=== PATIENT | female | born 1975 | race Caucasian/White ===

== ENCOUNTER 2016-11-15 07:34 | Day surgery (SDC) | payer OTHER ==
[~2016-11-15] VITALS: Ht 165.1 cm; Wt 95.7 kg
[~2016-11-15 07:34] MED LIST: ALBU17IN INH; no medications
[2016-11-15] MEDS ORDERED: GENTAMICIN SULFATE 360 MG in D5W 100 ML IV ONE (08:00)
[2016-11-15] MEDS ORDERED: CLINDAMYCIN 900 MG in APPROPRIATE DILUENT 1 EA IV ONE (08:00)
[2016-11-15] MEDS ORDERED: LR 1,000 ML IV SCH ×2 (08:00→13:45)
[2016-11-15] MEDS ORDERED: METHYLENE BLUE 1% 10 ML VIAL (Q9968) As Ordered ONE (08:11)
[2016-11-15] MEDS ORDERED: BUPIVACAINE HCL 0.25% 30 ML VIAL As Ordered ONE (08:11)
[2016-11-15 08:16] LABS: MEAN CORPUSCULAR HEMOGLOBIN 28.2 pg (27.0-33.0); MEAN CORPUSCULAR HGB CONC 34.2 g/dl (32.0-36.5); MEAN CORPUSCULAR VOLUME 82.6 fl (80.0-96.0); RED CELL DISTRIBUTION WIDTH 13.7 % (11.5-14.5); WHITE BLOOD COUNT 4.9 K/mm3 (4.0-10.0)
[2016-11-15 08:30] LABS: ANION GAP 9 MEQ/L (8-16); BLOOD UREA NITROGEN 13 MG/DL (7-18); CALCIUM LEVEL 8.9 MG/DL (8.5-10.1); CARBON DIOXIDE LEVEL 25 MEQ/L (21-32); CHLORIDE LEVEL 108 MEQ/L (98-107); CREATININE FOR GFR 0.86 MG/DL (0.55-1.02); GLOMERULAR FILTRATION RATE > 60.0 (>58); GLUCOSE, FASTING 99 MG/DL (70-105); POTASSIUM SERUM 3.8 MEQ/L (3.5-5.1); SODIUM LEVEL 142 MEQ/L (136-145)
[2016-11-15 08:32] LABS: CONTROL LINE HCG INT CTR LINE PRESENT
[2016-11-15] MEDS ORDERED: LIDOCAINE 2% INJ 100 MG/5 ML SDV (FOR ANES.) As Ordered ONE (09:29)
[2016-11-15] MEDS ORDERED: ROCURONIUM BROMIDE 50 MG/5 ML VIAL As Ordered ONE ×2 (09:29→10:13)
[2016-11-15] MEDS ORDERED: MIDAZOLAM INJ 2 MG/2 ML VIAL (J2250) As Ordered ONE (09:29)
[2016-11-15] MEDS ORDERED: PROPOFOL 200 MG/20 ML VIAL As Ordered ONE (09:29)
[2016-11-15] MEDS ORDERED: dexameTHASONE 4 MG/ML 1ML VIAL (J1100) As Ordered ONE (09:29)
[2016-11-15] MEDS ORDERED: fentaNYL 250 MCG/5 ML INJECTION (J3010) As Ordered ONE (09:29)
[2016-11-15] MEDS ORDERED: SEVOFLURANE INHAL SOLN 250 ML BTL As Ordered ONE (11:04)
[2016-11-15] MEDS ORDERED: HYDROmorphone HCL 2 MG/ML 1ML VIAL (J1170) As Ordered ONE (11:21)
[2016-11-15] MEDS ORDERED: ONDANSETRON 4MG/2ML VIAL (J2405) As Ordered ONE (11:21)
[2016-11-15] MEDS ORDERED: METOCLOPRAMIDE INJ 10MG/2ML VIAL (J2765) As Ordered ONE (11:21)
[2016-11-15] MEDS ORDERED: NEOSTIGMINE 1MG/ML 5 ML SYRINGE (J2710) As Ordered ONE (11:21)
[2016-11-15] MEDS ORDERED: GLYCOPYRROLATE INJ 0.2 MG/ML 2 ML VIAL As Ordered ONE (11:21)
[2016-11-15] MEDS ORDERED: ePHEDrine SULFATE 25 MG/5 ML(5MG/ML) SYRINGE As Ordered ONE (11:29)
[2016-11-15] MEDS: KETOROLAC 30 MG/ML VIAL (J1885) IV SCH ×2 (12:45→20:05)
[2016-11-15] MEDS ORDERED: METHYLENE BLUE 1% 10 ML VIAL (Q9968) XX ONE (13:01)
[2016-11-15] MEDS ORDERED: BUPIVACAINE HCL 0.25% 30 ML VIAL XX ONE (13:01)
[2016-11-15] MEDS: LR 1,000 ML IV SCH ×2 (13:15→20:05)
[2016-11-15] MEDS ORDERED: PERCOCET 5MG/325MG TAB PO PRN ×2 (13:15→13:45)
[2016-11-15] MEDS ORDERED: ONDANSETRON 4MG/2ML VIAL (J2405) IV PRN (13:15)
[2016-11-15] MEDS ORDERED: PROMETHAZINE INJ 25 MG/ML VIAL (J2550) IV PRN (13:15)
[2016-11-15] MEDS ORDERED: fentaNYL 100 MCG/2 ML INJECTION (J3010) IV PRN (13:45)
[2016-11-15 15:20] VITALS: BP 140/75
[2016-11-15 15:50] VITALS: BP 126/70
[2016-11-15] MEDS ORDERED: IBUP600T26 PO (16:42)
[2016-11-15] MEDS ORDERED: OXYC1TAB23 PO (16:44)
[2016-11-15] MEDS ORDERED: ZOFR20TA PO (16:47)
[2016-11-15] MEDS ORDERED: COLA100C PO (16:48)
[2016-11-15 16:50] VITALS: BP 126/68
[2016-11-15 17:50] VITALS: BP 123/58
[2016-11-15] MEDS: PERCOCET 5MG/325MG TAB PO PRN (18:06)
[2016-11-15 18:50] VITALS: BP 118/65
[2016-11-15 19:50] VITALS: BP 109/56
[2016-11-15] MEDS: DOCUSATE SODIUM 100 MG CAP PO SCH (20:05)
[2016-11-16] VITALS: BP 115/59
[2016-11-16] MEDS: PERCOCET 5MG/325MG TAB PO PRN ×2 (00:36→06:58)
[2016-11-16] MEDS: KETOROLAC 30 MG/ML VIAL (J1885) IV SCH ×2 (02:22→08:10)
[2016-11-16] MEDS: LR 1,000 ML IV SCH (02:31)
[2016-11-16 04:00] VITALS: BP 122/60
[2016-11-16 06:54] LABS: BASO % 0.1 % (0.0-1.0); EOS % 0.2 % (0.0-3.0); LARGE UNSTAINED CELL # 0.1 K/mm3 (0.0-0.4); LARGE UNSTAINED CELL % 1.4 % (0.0-4.0); LYMPH # 1.6 K/mm3 (1.5-4.5); LYMPH % 22.1 % (24.0-44.0); MEAN CORPUSCULAR HEMOGLOBIN 28.6 pg (27.0-33.0); MEAN CORPUSCULAR HGB CONC 34.3 g/dl (32.0-36.5); MEAN CORPUSCULAR VOLUME 83.5 fl (80.0-96.0); MONO # 0.3 K/mm3 (0.0-0.8); MONO % 4.8 % (0.0-5.0); NEUTROPHILS % 71.3 % (36.0-66.0); PLATELET COUNT, AUTOMATED 204 k/mm3 (150-450); RED CELL DISTRIBUTION WIDTH 13.2 % (11.5-14.5); WHITE BLOOD COUNT 7.1 K/mm3 (4.0-10.0)
[2016-11-16 08:00] VITALS: BP 146/65
[2016-11-16] MEDS: DOCUSATE SODIUM 100 MG CAP PO SCH (08:10)
[2016-11-16] MEDS ORDERED: MOTR200T40 PO (09:43)
[2016-11-16] MEDS ORDERED: IBUPROFEN 800 MG TAB PO SCH (16:00)
--- NOTE | 2016-11-18 13:28 | RO ---
DATE OF PROCEDURE: 11/15/2016 PREOPERATIVE DIAGNOSES: 1. Abnormal uterine bleeding. 2. Chronic pelvic pain. 3. Recurrent, persistent bilateral ovarian cysts. POSTOPERATIVE DIAGNOSES: 1. Abnormal uterine bleeding. 2. Chronic pelvic pain. 3. Recurrent, persistent bilateral ovarian cysts. PROCEDURE PERFORMED: Robotic-assisted total laparoscopic hysterectomy, bilateral salpingo-oophorectomy and cystoscopy. SURGEON: Oneil Ruiz DO. [employer]IM [employer]T SEWING MACHINE OPERATOR: NILESH Ramey (needed for uterine manipulation). ANESTHESIA: General endotracheal. SPECIMENS TO PATHOLOGY: Uterus, cervix with bilateral fallopian tube and ovaries. ESTIMATED BLOOD LOSS: 50 mL. FLUIDS REPLACED: 2 liters lactated Ringer's. DRAINS: Puente catheter 400 mL. COMPLICATIONS: None. PREOPERATIVE ANTIBIOTICS: Gentamicin 360 mg IV x1, clindamycin 900 mg IV x1. INTRAOPERATIVE FINDINGS: Uterus was approximately 7-8 cm in greatest dimension. The uterus sounded to 7.5 cm. Left ovary was enlarged approximately 5 cm in greatest dimension with smooth wall cyst but no studding or excrescences noted. No surrounding adhesions. Right ovary enlarged approximately 7 cm in greatest dimension, smooth wall cyst with no studding, excrescences or adhesions. Cystoscopic findings: No bladder injury. No suture material. Bilateral ureteral orifice efflux visualized after IV infusion of methylene blue. INDICATION: The patient is a 40-year-old G3, P3 with a longstanding history of abnormal uterine bleeding, chronic pelvic pain and recurrent large bilateral ovarian cysts. She expressed desire for definitive management via hysterectomy and bilateral salpingo-oophorectomy. She was extensively counseled regarding the risks of the procedure, particularly on long-term health effects of bilateral salpingo-oophorectomy for benign conditions prior to the age of 50. PROCEDURE: The patient was counseled and consented on the risks, benefits, indications, and alternatives of the procedure. Informed consent was obtained. She was taken to the operating room with an IV running and placed on the operating table in the dorsal supine position. General anesthesia was administered and airway secured without any difficulty. The patient was placed in a level horizontal low lithotomy position. She was prepped and draped in a normal sterile fashion. A time-out was performed per protocol. A Puente catheter was placed under sterile conditions. A sterile speculum was placed into the vagina with good visualization of the cervix. The anterior lip of the cervix was grasped with a single-tooth tenaculum and downward traction was applied. The uterus was sounded to 7.5 cm. The cervix was sequentially dilated with Chepe dilators up to #16. The anterior and posterior lip were tagged with and interrupted stitch using #0 Vicryl suture. The VCare uterine manipulator was placed in typical fashion without any difficulty. The single-toothed tenaculum was removed. The sterile speculum was removed. The VCare uterine manipulator was noted to be adequately in place. A glove switch was performed. Attention was turned to the abdomen. A 2 mm umbilical incision was made with the 11 blade. The Veress needle was placed through this incision into the intraperitoneal cavity. Intraperitoneal placement was confirmed with the following checks: no resistance/ease of flow of normal saline from the attached syringe through the Veress needle, no return of blood/fluid/succus upon aspirating with the attached syringe, a positive drop test, and the opening pressure during insufflation was less than 10 mmHg. The abdomen was insufflated with 2.5 liters of gas. The Veress needle was removed. A 12 mm horizontal midline, supraumbilical incision was made with the 11 blade. Through this incision, a size 12mm XL laparoscopic trocar was placed under direct visualization technique into the intraperitoneal cavity. Intraperitoneal placement was confirmed. The patient was placed in a low lithotomy steep Trendelenberg position. The right and left lower quadrant port sites were placed via 8 mm incisions using the 11 blade. The 8 mm da Antoine cannulas were placed under laparoscopic guidance on both sides. An additional 8 mm accessory port-site was placed under laparoscopic guidance in the left upper quadrant, approximately 10 cm directly above the left lower quadrant port site. Given the successful placement of all the DaVinci cannulas, the robot was easily side-docked. Attention was turned to the [employer] robotic console. The right fallopian tube, utero-ovarian ligament, and round ligament were sequentially clamped, coagulated and transected with the DaVinci vessel sealer device. The Da Antoine vessel sealer was used to dissect and mobilize the right- sided half of the vesicouterine peritoneum/"bladder flap" with both blunt and bipolar dissection. The right uterine vasculature was skeletonized and identified. Excellent hemostasis was achieved. The left fallopian tube, utero-ovarian ligament and round ligament were sequentially clamped, coagulated and transected using the Da Antoine vessel sealer device. The left uterine vasculature was skeletonized and easily identified. Excellent hemostasis was noted. The remainder of the vesicouterine peritoneum was dissected and mobilized along the anterior portion of the VCare uterine manipulator cup in order to complete the bladder flap. This resulted in adequate mobilization/displacement of the bladder away from the cervix. During all of the dissection described above , an occasional small bleeding vessel needed to be cauterized with the DaVinci PK bipolar forceps. The right and left uterine vasculature were sequentially clamped, coagulated and transected with both DaVinci PK bipolar forceps and vessel sealer instruments. Excellent blanching of the uterus was noted, thus indicating that the blood supply to the uterus was obliterated. Excellent hemostasis was noted. The [employer] monopolar abe were used to create the circumferential colpotomy around the VCare cervical cup border. Incidental small bleeding vaginal vessels were cauterized with the DaVinci PK bipolar forceps. This circumferential incision was completed and the uterus with the cervix was noted to be fully amputated as one unit. This specimen was brought through the colpotomy into the vagina. Insufflation of the intraperitoneal cavity remained adequate. Attention was turned to the right IP ligament. The distal right IP ligament was noted to be an adequate distance from the right ureter. The right IP ligament was sequentially clamped, coagulated and transected, thus amputating the right ovary and fallopian tube. This specimen was placed through the colpotomy into the vagina. The distal left IP ligament was identified and noted to be an adequate distance from the left ureter. The left IP ligament was sequentially clamped, coagulated and transected, thus amputating the left ovary and fallopian tube. This specimen was placed through the colpotomy into the vagina. The vaginal cuff was closed in running fashion with V-Loc suture. Excellent hemostasis of the vaginal cuff was noted. The lower abdomen/pelvis was irrigated and suctioned, thus removing all blood and clot. Excellent hemostasis was noted. Ozzie was placed over the surgical sites to maintain hemostasis. The insufflation gas was released from the intraperitoneal cavity. All cannulas were removed. The robot was undocked without any difficulty. The patient was taken out of steep Trendelenburg and placed back into a level horizontal low lithotomy position. The Puente catheter was removed. A 30 degree cystoscope was placed transurethrally into the bladder. The entire bladder mucosa was examined. There was no evidence of a bladder injury or suture material. Brisk bilateral ureteral orifice efflux of urine was visualized after IV infusion of methylene blue. The cystoscope was removed and the Puente catheter was replaced. The vagina was copiously irrigated. The sponge, needle, and instrument counts were correct. A glove switch was performed. Attention was turned back to the abdomen. At the supraumbilical incision, the underlying fascia was closed with #0 Vicryl with [id number] stitch. Each skin incision was closed with #4-0 Monocryl in subcuticular fashion and reinforced with Dermabond. Sponge, needle, and instrument counts were again correct. The patient tolerated the entire procedure well. She was transferred to the postanesthesia care unit in good and stable condition. GEO
== END 2016-11-16 10:19 | disposition home or self-care (01) ==
LOC: M SDC 07:34 → M PED 15:05 → M SDC 11-16 10:19
PROVIDERS: ATTEND Obstetrics & Gynecology
DX: N93.9 Abnormal uterine and vaginal bleeding, unspecified (principal); R10.2 Pelvic and perineal pain; N83.291 Other ovarian cyst, right side; N83.292 Other ovarian cyst, left side; J45.909 Unspecified asthma, uncomplicated; M54.2 Cervicalgia; G43.909 Migraine, unspecified, not intractable, without status migrainosus; Z86.79 Personal history of other diseases of the circulatory system; E07.9 Disorder of thyroid, unspecified; Z88.1 Allergy status to other antibiotic agents; Z88.8 Allergy status to other drugs, medicaments and biological substances; Z88.3 Allergy status to other anti-infective agents
CPT/HCPCS: 36415; 58571; 80048; 84703; 85025; 85027; 88309; 96374; 96376; J1100; J1170; J1580; J1885; J2250; J2405; J2710; J2765; J3010; Q9968

== ENCOUNTER → 2016-12-05 | Outpatient (CLI) | payer OTHER ==
[~2016-12-05] MED LIST changes: +COLA100C PO; +IBUP600T26 PO; +MOTR200T44 PO; +OXYC1TAB23 PO; +ZOFR20TA PO
== END ==
LOC: M LAB 11:36
PROVIDERS: ATTEND Nurse Practitioner Family
DX: E55.9 Vitamin D deficiency, unspecified (principal)

== ENCOUNTER → 2016-12-05 | Outpatient (CLI) | payer OTHER ==
[2016-12-05 13:01] LABS: BASO # 0.1 K/mm3 (0.0-0.2); BASO % 2.4 % (0.0-1.0); EOS # 0.1 K/mm3 (0.0-0.50); EOS % 2.2 % (0.0-3.0); LARGE UNSTAINED CELL # 0.1 K/mm3 (0.0-0.4); LARGE UNSTAINED CELL % 1.1 % (0.0-4.0); LYMPH # 1.6 K/mm3 (1.5-4.5); LYMPH % 30.5 % (24.0-44.0); MEAN CORPUSCULAR HEMOGLOBIN 27.5 pg (27.0-33.0); MEAN CORPUSCULAR HGB CONC 33.3 g/dl (32.0-36.5); MEAN CORPUSCULAR VOLUME 82.7 fl (80.0-96.0); MONO # 0.3 K/mm3 (0.0-0.8); MONO % 5.4 % (0.0-5.0); NEUTROPHILS % 58.4 % (36.0-66.0); PLATELET COUNT, AUTOMATED 312 k/mm3 (150-450); RED CELL DISTRIBUTION WIDTH 13.5 % (11.5-14.5); WHITE BLOOD COUNT 5.1 K/mm3 (4.0-10.0)
[2016-12-05 13:32] LABS: ALBUMIN 3.9 GM/DL (3.2-5.2); ALBUMIN/GLOBULIN RATIO 1.18 (1.00-1.93); ALKALINE PHOSPHATASE 59 U/L (45-117); ALT/SGPT 19 U/L (12-78); ANION GAP 6 MEQ/L (8-16); AST/SGOT 11 U/L (15-37); BILIRUBIN,TOTAL 0.4 MG/DL (0.2-1.0); BLOOD UREA NITROGEN 19 MG/DL (7-18); CALCIUM LEVEL 8.7 MG/DL (8.5-10.1); CARBON DIOXIDE LEVEL 30 MEQ/L (21-32); CHLORIDE LEVEL 106 MEQ/L (98-107); CREATININE FOR GFR 0.86 MG/DL (0.55-1.02); GLOMERULAR FILTRATION RATE > 60.0 (>58); GLUCOSE, FASTING 81 MG/DL (70-105); POTASSIUM SERUM 4.4 MEQ/L (3.5-5.1); SODIUM LEVEL 142 MEQ/L (136-145); TOTAL PROTEIN 7.2 GM/DL (6.4-8.2)
[2016-12-05 14:34] LABS: ERYTHROCYTE SEDIMENTATION RATE 8 mm/hr (0-20)
== END ==
LOC: M LAB 11:42
PROVIDERS: ATTEND Psychiatry & Neurology Neurology
DX: R51 Headache (principal)

== ENCOUNTER → 2019-04-29 | Outpatient (CLI) | payer OTHER ==
[~2019-04-29] MED LIST changes: -COLA100C PO; +COLA100C5 PO; +IBUP-1022 PO; +IBUP200T45 PO; -IBUP600T26 PO; +VENTAER INH; -ZOFR20TA PO; +ZOFR4TAB16 PO
--- NOTE | 2019-04-29 17:51 | ECHO ---
DATE OF PROCEDURE: 04/29/2019 REFERRING PHYSICIAN: Dr. Johnson INDICATION: Cardiomegaly. HEIGHT: 163 cm WEIGHT: 99 kg DIMENSIONS: IVS: 1.0 LV: 4.5 LVPW: 1.1 LA: 3.8 Aorta: 2.8 IVC 2.1 Mitral E wave velocity: 113, A-wave: 55 E prime septal: 7.9. E prime lateral: 8.8 FINDINGS The study is of fair technical quality, but quite acceptable considering patient's body habitus. Left ventricle is of normal size and systolic function, I estimate left ventricular ejection fraction (LVEF) around 60-65%. Right ventricle is also normal size and systolic function. Both atria appear normal. Aortic, mitral and tricuspid valves appear normal. Pulmonic valve was poorly visualized, but grossly appears normal. No pericardial effusion is noted. Inferior vena cava is mildly dilated. Aortic root and aortic arch appear normal. Abdominal aorta was less well seen but also appears normal. Doppler interrogation of aortic valve reveals no stenosis or insufficiency. There is trace mitral and trace tricuspid insufficiency. Calculated pulmonary artery pressure is in low 30s corresponding to mild pulmonary hypertension. Pulmonic valve is functionally competent. Mitral inflow pattern and tissue Doppler imaging of mitral annulus reveal likely normal diastolic function even though tissue Doppler velocities of mitral annulus are mildly reduced. CONCLUSIONS 1. Study is of acceptable technical quality. 2. Normal left ventricle (LV) size with preserved LV systolic and diastolic function. 3. No significant valvular disease. 4. Normal or mildly elevated central venous pressure and possibly mild pulmonary hypertension under COMMENT Subacute bacterial endocarditis (SBE) prophylaxis is not recommended. The study does not provide obvious explanation for cardiomegaly, cardiac size is normal.
== END ==
LOC: M CARPUL 08:31
PROVIDERS: ATTEND Family Medicine
DX: I51.7 Cardiomegaly (principal)

== ENCOUNTER 2019-05-18 06:50 | Day surgery (SDC) | payer OTHER ==
[~2019-05-18] VITALS: Ht 165.1 cm; Wt 98.4 kg
[~2019-05-18 06:50] MED LIST changes: +NS 1,000 ML IV ONE
[2019-05-18] MEDS ORDERED: LIDOCAINE 2% INJ 100 MG/5 ML SDV (FOR ANES.) As Ordered ONE (07:26)
[2019-05-18] MEDS ORDERED: PROPOFOL 200 MG/20 ML VIAL As Ordered ONE (07:26)
--- NOTE | 2019-05-18 07:53 | ROOR ---
Patient Name: Vannesa Steele Procedure Date: 05/18/2019 7:27 AM Date of : 1975 Age: 43 Room: [facility] Gender: Female Note Status: Finalized Procedure: Total Colonoscopy to Cecum Indications: Colon cancer screening in patient at increased risk: Family history of 1st-degree relative with colon polyps Providers: Dawit Milian MD Referring MD: Dawit LOPEZ MD Requesting Provider: Medicines: Monitored Anesthesia Care Complications: No immediate complications. Procedure: Pre-Anesthesia Assessment: - The heart rate, respiratory rate, oxygen saturations, blood pressure, adequacy of pulmonary ventilation, and response to care were monitored throughout the procedure. The Colonoscope was introduced through the anus and advanced to the cecum, identified by appendiceal orifice and ileocecal valve. The colonoscopy was performed without difficulty. The patient tolerated the procedure well. The quality of the bowel preparation was excellent. Findings: The perianal and digital rectal examinations were normal. No other significant abnormalities were identified in a careful examination of the remainder of the colon. The exam was otherwise without abnormality on direct and retroflexion views. Impression: - The examination was otherwise normal on direct and retroflexion views. - No specimens collected. - The exam was otherwise normal to the cecum. Recommendation: - Patient has a contact number available for emergencies. The signs and symptoms of potential delayed complications were discussed with the patient. Return to normal activities tomorrow. Written discharge instructions were provided to the patient. - High fiber diet. - Discharge patient to home. - Continue present medications. - Repeat colonoscopy in 5 years for screening purposes. - Return to referring physician. - The findings and recommendations were discussed with the patient's family. Dawit Milian MD Dawit Milian MD 05/18/2019 7:53:02 AM Electronically signed by Dawit Milian MD Number of Addenda: 0 Note Initiated On: 05/18/2019 7:27 AM Estimated Blood Loss: Estimated blood loss: none.
[2019-05-18 08:27] VITALS: BP 158/95
== END 2019-05-18 08:28 | disposition home or self-care (01) ==
LOC: M OPP 06:50
PROVIDERS: ATTEND Internal Medicine Gastroenterology
DX: Z12.11 Encounter for screening for malignant neoplasm of colon (principal); Z83.71 Family history of colonic polyps; Z88.0 Allergy status to penicillin; Z88.8 Allergy status to other drugs, medicaments and biological substances; Z91.040 Latex allergy status; Z91.048 Other nonmedicinal substance allergy status